=== PATIENT | female | born 1985 | race Caucasian/White ===

== ENCOUNTER 2023-12-11 18:12 | Emergency (ER) | payer OTHER ==
[2023-12-11 18:42] VITALS: RESP 18; BMI 26.5
[2023-12-11] MEDS ORDERED: IBUPROFEN 600 MG TABLET (FP) PO ONE ×2 (20:23→20:24)
[2023-12-11] MEDS ORDERED: ACETAMINOPHEN 500 MG TABLET (FP) PO ONE (20:23)
[2023-12-11] MEDS ORDERED: ACETAMINOPHEN 500 MG TABLET (FP) ONE (20:24)
[2023-12-11] MEDS ORDERED: LIDOCAINE 5% TOPICAL PATCH TP ONE (20:25)
[2023-12-11] MEDS ORDERED: LIDOCAINE 4% PATCH TP ONE (20:54)
[2023-12-11] MEDS ORDERED: LIDOCAINE PATCH REMOVAL MC SCH (22:00)
[2023-12-11 22:02] VITALS: BP 112/70; PULSE 83; TEMP 98.3
== END 2023-12-11 22:45 | disposition home or self-care (01) ==
LOC: JERFT 18:12
DX: Z04.1 Encounter for examination and observation following transport accident (principal); V89.2XXA Person injured in unspecified motor-vehicle accident, traffic, initial encounter; Y92.410 Unspecified street and highway as the place of occurrence of the external cause
CPT/HCPCS: 71046-TC-FY; 73030-TC-RT-FY; 73110-TC-RT-FY; 73130-TC-RT-FY; 73564-TC-LT-FY; 73564-TC-RT-FY; 99284-25